=== PATIENT | male | born 1985 | race Caucasian/White ===

== ENCOUNTER 2023-05-19 18:37 | Inpatient (IN) | payer OTHER ==
[2023-05-19] MEDS ORDERED: cloNIDine 0.1 MG TAB ONE (19:28)
[2023-05-19 19:49] LABS: #Basophils 0.2 10x3/uL (0.0-0.2); #Eosinphils 0.1 10x3/uL (0.0-0.5); #Monocytes 0.8 10x3/uL (0.0-1.1); %Eosinophils 0.7 % (0.0-6.0); %Lymphocytes 12.9 % (18.0-47.0); %Monocytes 4.7 % (0.0-10.0); %Neutrophils 79.5 % (40.0-75.0); Hematocrit 27.8 % (38.8-50.0); Mean Corpuscular HGB CONC 32.4 g/dL (32.0-36.0); Mean Corpuscular Hemoglobin 27.8 pg (27.0-33.0); Mean Corpuscular Volume 85.8 fl (81.2-95.1); Mean Platelet Volume 8.4 fl (7.4-10.4); Platelet Count 580 10x3/uL (150-450); RBC Distribution Width 14.8 % (11.5-14.5); Red Blood Cell (RBC) Count 3.24 10x6/uL (4.32-5.72); White Blood Cell (WBC) Count 16.4 10x3/uL (3.5-10.5)
[2023-05-19 20:04] LABS: Anion Gap 21 mmol/L (10-20); BUN (Urea Nitrogen) 12 mg/dL (8.9-20.6); Calc. Creatinine Clearance 0 mL/min (70-130); Calcium 9.5 mg/dL (7.8-10.44); Carbon Dioxide 21 mmol/L (22-29); Chloride 107 mmol/L (98-107); Estimated GFR 73; Glucose 98 mg/dL (70-105); Potassium 3.7 mmol/L (3.5-5.1); Sodium 145 mmol/L (136-145)
[2023-05-19] MEDS ORDERED: hydrALAZINE 20 MG/ML VIAL ONE ×2 (21:04→22:27)
[2023-05-19] MEDS ORDERED: cefTRIAXone (ROCEPHIN) 1 GM VIAL ONE (21:05)
[2023-05-19] MEDS ORDERED: Vancomycin 1.5 GRAM/300 ML BAG 1.5 GM in Premix Bag 1 BAG IVPB SCH (21:15)
[2023-05-19] MEDS ORDERED: Metoprolol Tartrate 5 MG/5 ML VIAL ONE (23:11)
[2023-05-20 00:59] VITALS: BMI 24.3
[2023-05-20] MEDS ORDERED: Vancomycin Dose by Levels Sliding Scale (Wt 71-99) FS SCH (02:30)
[2023-05-20 05:51] LABS: #Basophils 0.2 10x3/uL (0.0-0.2); #Eosinphils 0.2 10x3/uL (0.0-0.5); #Monocytes 0.9 10x3/uL (0.0-1.1); #Neutrophils 11.6 10x3/uL (1.5-8.4); %Basophils 1.2 % (0.0-2.0); %Lymphocytes 15.6 % (18.0-47.0); %Monocytes 5.7 % (0.0-10.0); %Neutrophils 75.5 % (40.0-75.0); Hematocrit 29.8 % (38.8-50.0); Hemoglobin 9.6 g/dL (13.5-17.5); Mean Corpuscular HGB CONC 32.2 g/dL (32.0-36.0); Mean Corpuscular Hemoglobin 27.7 pg (27.0-33.0); Mean Corpuscular Volume 86.1 fl (81.2-95.1); Mean Platelet Volume 8.5 fl (7.4-10.4); Platelet Count 616 10x3/uL (150-450); Red Blood Cell (RBC) Count 3.46 10x6/uL (4.32-5.72); White Blood Cell (WBC) Count 15.4 10x3/uL (3.5-10.5)
[2023-05-20 06:14] LABS: Anion Gap 18 mmol/L (10-20); BUN (Urea Nitrogen) 11 mg/dL (8.9-20.6); Calc. Creatinine Clearance 95 mL/min (70-130); Calcium 9.5 mg/dL (7.8-10.44); Carbon Dioxide 22 mmol/L (22-29); Chloride 108 mmol/L (98-107); Estimated GFR 90; Glucose 100 mg/dL (70-105); Magnesium 1.7 mg/dL (1.6-2.6); Potassium 3.5 mmol/L (3.5-5.1); Sodium 144 mmol/L (136-145)
[2023-05-20] MEDS ORDERED: VANCOMYCIN 1.25 GM/250 ML BAG IVPB SCH (09:00)
[2023-05-20] MEDS: Amlodipine 10 MG TAB PO SCH (10:53)
[2023-05-20 10:57] LABS: Vancomycin, Random 10.4 ug/mL (See Comment)
[2023-05-20] MEDS ORDERED: Lidocaine 1% PF 5 ML VIAL SQ SCH (12:00)
[2023-05-20] MEDS: Vancomycin HCl 1 GM in Sodium Chloride 0.9% 250 ML 250 ML IVPB SCH (12:30)
[2023-05-20] MEDS: Ferrous Sulfate 325 MG TAB PO SCH (18:25)
[2023-05-20] MEDS: cefTRIAXone\\ROCEPHIN 1 GM in Sodium Chloride 0.9% 100 ML IVPB SCH (21:20)
[2023-05-21] MEDS: Vancomycin HCl 1 GM in Sodium Chloride 0.9% 250 ML 250 ML IVPB SCH ×2 (00:42→12:38)
[2023-05-21 08:19] LABS: #Basophils 0.2 10x3/uL (0.0-0.2); #Eosinphils 0.3 10x3/uL (0.0-0.5); #Neutrophils 10.9 10x3/uL (1.5-8.4); %Basophils 1.1 % (0.0-2.0); %Eosinophils 1.8 % (0.0-6.0); %Lymphocytes 15.5 % (18.0-47.0); Hematocrit 28.7 % (38.8-50.0); Hemoglobin 9.1 g/dL (13.5-17.5); Mean Corpuscular HGB CONC 31.7 g/dL (32.0-36.0); Mean Corpuscular Hemoglobin 27.7 pg (27.0-33.0); Mean Corpuscular Volume 87.5 fl (81.2-95.1); Mean Platelet Volume 8.6 fl (7.4-10.4); Platelet Count 535 10x3/uL (150-450); Red Blood Cell (RBC) Count 3.28 10x6/uL (4.32-5.72); White Blood Cell (WBC) Count 14.7 10x3/uL (3.5-10.5)
[2023-05-21] MEDS: Ferrous Sulfate 325 MG TAB PO SCH ×2 (08:31→16:45)
[2023-05-21] MEDS: Amlodipine 10 MG TAB PO SCH (09:31)
[2023-05-21] MEDS ORDERED: Acetaminophen/Codeine 30-300mg Tablet PO PRN (09:43)
[2023-05-21] MEDS ORDERED: Cyclobenzaprine 10 MG TAB PO PRN (09:43)
[2023-05-21] MEDS ORDERED: Gabapentin 300 MG CAP PO SCH (11:00)
[2023-05-21 11:40] LABS: Vancomycin, Trough 15.3 ug/mL
[2023-05-21] MEDS: Gabapentin 300 MG CAP PO SCH ×2 (15:44→21:37)
[2023-05-21] MEDS ORDERED: Ferrous Sulfate 325 MG TAB PO SCH (21:00)
[2023-05-21] MEDS: cefTRIAXone\\ROCEPHIN 1 GM in Sodium Chloride 0.9% 100 ML IVPB SCH (21:37)
[2023-05-22] MEDS ORDERED: Aspirin 81 mg Enteric Coated Tablet PO SCH (09:00)
[2023-05-22] MEDS ORDERED: Vancomycin HCl 1 GM in Sodium Chloride 0.9% 250 ML 250 ML IVPB SCH (09:00)
[2023-05-22] MEDS: Amlodipine 10 MG TAB PO SCH (09:51)
[2023-05-22] MEDS: Gabapentin 300 MG CAP PO SCH (09:51)
[2023-05-22] MEDS: Ferrous Sulfate 325 MG TAB PO SCH (09:52)
[2023-05-22 10:02] LABS: #Basophils 0.2 10x3/uL (0.0-0.2); #Eosinphils 0.4 10x3/uL (0.0-0.5); #Neutrophils 9.1 10x3/uL (1.5-8.4); %Basophils 1.6 % (0.0-2.0); %Eosinophils 2.6 % (0.0-6.0); %Lymphocytes 21.2 % (18.0-47.0); %Monocytes 7.6 % (0.0-10.0); %Neutrophils 66.3 % (40.0-75.0); Hematocrit 29.7 % (38.8-50.0); Hemoglobin 9.5 g/dL (13.5-17.5); Mean Corpuscular Hemoglobin 27.8 pg (27.0-33.0); Mean Corpuscular Volume 86.8 fl (81.2-95.1); Mean Platelet Volume 8.3 fl (7.4-10.4); Platelet Count 498 10x3/uL (150-450); Red Blood Cell (RBC) Count 3.42 10x6/uL (4.32-5.72); White Blood Cell (WBC) Count 13.7 10x3/uL (3.5-10.5)
[2023-05-22 10:13] LABS: Anion Gap 16 mmol/L (10-20); BUN (Urea Nitrogen) 16 mg/dL (8.9-20.6); Calc. Creatinine Clearance 114 mL/min (70-130); Carbon Dioxide 21 mmol/L (22-29); Chloride 110 mmol/L (98-107); Estimated GFR 111; Glucose 85 mg/dL (70-105); Potassium 3.9 mmol/L (3.5-5.1); Sodium 143 mmol/L (136-145)
[2023-05-22 18:47] VITALS: BP 124/72; TEMP 97.5
== END 2023-05-22 17:00 | disposition home or self-care (01) | DRG 314 ==
LOC: CSHERS 18:37 → CSHTELE 05-20 00:42
PROVIDERS: ADMIT Family Medicine; ATTEND Internal Medicine
PROC: 0JPT3XZ Removal of Tunneled Vascular Access Device from Trunk Subcutaneous Tissue and Fascia, Percutaneous Approach (ICD-10-PCS; principal; 2023-05-20)
PROC: 05PYX3Z Removal of Infusion Device from Upper Vein, External Approach (ICD-10-PCS; 2023-05-20)
PROC: 3E03329 Introduction of Other Anti-infective into Peripheral Vein, Percutaneous Approach (ICD-10-PCS; 2023-05-20)
DX: T82.7XXA Infection and inflammatory reaction due to other cardiac and vascular devices, implants and grafts, initial encounter (principal); A41.9 Sepsis, unspecified organism; N17.9 Acute kidney failure, unspecified; F17.210 Nicotine dependence, cigarettes, uncomplicated; F15.90 Other stimulant use, unspecified, uncomplicated; Y83.8 Other surgical procedures as the cause of abnormal reaction of the patient, or of later complication, without mention of misadventure at the time of the procedure; M79.2 Neuralgia and neuritis, unspecified; F41.9 Anxiety disorder, unspecified; F32.A Depression, unspecified; I16.0 Hypertensive urgency; D53.9 Nutritional anemia, unspecified; E87.6 Hypokalemia; Z79.899 Other long term (current) drug therapy; Z79.82 Long term (current) use of aspirin; Z90.49 Acquired absence of other specified parts of digestive tract
CPT/HCPCS: 36415; 71045; 80048; 80202; 83605; 83735; 85025; 87040; 93005; J0360; J0696; J1650; J3370; J3490; J7050